=== PATIENT | male | born 1965 | race Caucasian/White ===

== ENCOUNTER 2016-07-18 17:23 | Inpatient (IN) | payer OTHER ==
--- NOTE | ~2016-07-18 | OP ---
Record Of Operation [facility] [address] [place]. 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 POSTOPERATIVE DIAGNOSES: 1. 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 2. Hematoma formation. PROCEDURES: Laminectomy, navigation assisted, T10-L2. SURGEON: Rafael Burrell D.O. DOPER: Rafal Bird. ANESTHETIC: General. BLOOD LOSS: 300 mL. INDICATIONS: Indications for surgery are noted in the consult note. Also, please note that I have gone over with the patient and his sister and family, the risk including but not limited to, infection, he could have a dural tear with meningitis, arachnoiditis, or need for surgical drainage or repair. He could have secondary to meningitis or from perioperative medical complications such as UTI, PE, pneumonia, SC, CVA, etc. His family has been explicitly warned that he may not recover any motor function and he may be a complete paraplegia from a motor standpoint. Consent form has been signed. DESCRIPTION OF PROCEDURE: The patient was brought from the ICU directly to the operative suite, room 31. General anesthetic including endotracheal intubation was administered. He was then carefully log rolled into a prone position on to the bed and placed on bolsters. All bony prominences were carefully padded. Thoracolumbar spine was scrubbed with Hibiclens solution. DuraPrep was painted. Sterile drapes were applied. Intraoperative CT scan with O-arm was obtained. CT information was used to register the navigational system. We used navigation because the needle had been placed with the needle at the disk space of L3-4. We could use that as a reference point and count up to the top of T11 to the bottom of T10. A midline incision was carried out, the fascia divided in midline, and the paraspinous muscles retracted laterally. I then started distally and carried out a laminectomy starting initially at the interval between the spinous process of L1 and L2. I removed the ligamentum flavum and debrided the lamina with a bur followed by a 2 and 3 mm Kerrison rongeurs. I then removed the ligamentum flavum and was sure that this was a hematoma and was not abscess. Cultures were taken just to cover all aspects of possibilities. I could see the L1-2. There is still hematoma distally, thus I extended distally, carried out a complete laminectomy with curettes, rongeurs, and drills all the way to the bottom of L2 and at this point, I had reached the distal extension of the hematoma. I evacuated the hematoma using a combination of a micro nerve hook, micro pituitary, and the Record Of Operation [facility] [address] [facility] [place]. [address] NAME: SARBJIT MOURA : 65 STATUS : ADM IN [facility]#: [id number] AGE: 50 ADM/REG DATE : 07/18/16 MR#: [id number] REPORT SERV DATE: 07/19/16 DICTATED BY: RAFAEL BURRELL DATE: 07/19/16 REPORT STATUS : Draft TRANSCRIBED BY: NATE DATE: 07/19/16 irrigation. The hematoma was solidly formed. As I moved from distal to proximal and carried out laminectomy, I found the hematoma to be larger and larger and particularly around the at T12 and the bottom of T11 area and there was severe cord compression with massive amounts of hematoma and the hematoma was worse on the right than the left side, but it was an extensive circumferential hematoma. We kept dissecting until we reached the top portion of the hematoma which was at the bottom of the lamina of T10. After the complete laminectomy and evacuation of the hematoma, the wounds were irrigated. The Hemovac drain was placed through the drains lying just over the dura to try to keep as much pressure off the thecal sac as possible. The vancomycin powder was placed in the wound and the myofascial layer was closed with an interrupted #1 Vicryl suture. The subcutaneous tissue was closed with 2-0 Vicryl sutures, 2-0 vertical mattress nylon suture used for skin closure. Sterile dressings were applied. The patient returned to supine position and Dr. Juancarlos Eugene then came to the operative suite and continued further care, dressing the left groin abscess or infection. MOSHE/MODL Rafael Burrell D.O. / [id number] CC: Matthew Choi MD
--- NOTE | ~2016-07-18 | IDS ---
Interim Discharge Summary [facility] [address] [place]. [address] NAME: SARBJIT MOURA : 65 STATUS : ADM IN PAT#: [id number] AGE: 50 ADM/REG DATE : 07/18/16 MR#: [id number] REPORT SERV DATE: 07/27/16 DICTATED BY: ELGIN CABA DATE: 07/26/16 REPORT STATUS : Draft TRANSCRIBED BY: MODL DATE: 07/26/16 ADMISSION DATE: 07/18/2016 DISCHARGE DATE: CONSULTANTS: Dr. Rambo Rogers Cardiology; Dr. Pepito Londono Neurology; Dr. Ilana Eugene, Urology; Dr. Rafael Ferrell Ortho Spine; Dr. Matthew Choi Critical Care; Dr. Massimo Mcgoevrn and Thomas Khan, Infectious Disease. PROBLEM LIST: 1. Delirium tremens in an alcoholic. 2. Paraplegia due to epidural hematoma T10 through L2. 3. Left groin abscess status post incision and drainage on 07/19/2016. 4. Small troponin leak type 2. 5. Hyponatremia. HISTORY: This patient presented to [facility], had multiple falls, having progressive difficulty with leg weakness. He was admitted to our team there, had a mild bump in his troponin, was seen by Dr. Rogers who felt that the troponin elevation was secondary to the stress, not a primary cardiac problem. He was seen by neurologist Dr. Pepito Londono who was concerned about the profound weakness in the patient's legs and so the patient underwent further imaging which included MRI of the lumbar, thoracic spine, and cervical spine. This revealed changes of T11 through L2 consistent with an epidural hematoma. The patient because of this was transferred here for Dr. Ferrell to see him. The patient was taken to the operating room by Dr. Ferrell on 07/19/2016 where he did laminectomy and evacuation of the hematoma. The patient also had a left lower inguinal abscess that was incised and drained by Dr. Eugene on the same date. The patient was in the ICU transiently because of DTs. He was transferred out to the medical floor. As far as his DTs, he is improving dramatically on thiamine and scheduled doses of Librium and p.r.n. doses of Ativan. He is very cooperative. As far as the inguinal abscess, Dr. Eugene is very pleased with the progress, thinks it just needs to be packed. It really has not grown anything significant out of it. The cultures from the epidural hematoma no growth, pathology just hematoma so he is off antibiotics. He has been paraplegic but today has some movement in his legs left better than right. Hopefully that will continue to improve. He still has a Bragg catheter. He has high risk for urinary retention so if it is taken out he will need to be closely monitored and may need straight catheterization. RSG/MODL Interim Discharge Summary [place] [id number] [place] [address] NAME: SARBJIT MOURA : 65 STATUS : ADM IN [facility]#: [id number] AGE: 50 ADM/REG DATE : 07/18/16 MR#: [id number] REPORT SERV DATE: 07/27/16 DICTATED BY: ELGIN CABA DATE: 07/26/16 REPORT STATUS : Draft TRANSCRIBED BY: NATE DATE: 07/26/16 Elgin Caba M.D. / [id number] CC: Matthew Choi
--- NOTE | ~2016-07-18 | IDS ---
Interim Discharge Summary [facility] [address] [place] [address] NAME: SARBJIT MOURA : 65 STATUS : ADM IN PAT#: [id number] AGE: 50 ADM/REG DATE : 07/18/16 MR#: [id number] REPORT SERV DATE: 07/27/16 DICTATED BY: ELGIN CABA DATE: 07/26/16 REPORT STATUS : Draft TRANSCRIBED BY: MODL DATE: 07/26/16 ADMISSION DATE: 07/18/2016 DISCHARGE DATE: ADDENDUM: The patient also had some rhabdomyolysis consistent with his falls and laying on the ground at home. His CPK at its highest was 1098, it has steadily come down. The patient's renal function is doing very well. RSG/NATE Elgin Caba M.D. / [id number] CC: Matthew Choi MD
--- NOTE | ~2016-07-18 | IDS ---
Interim Discharge Summary [facility] [address] [place]. [address] NAME: SARBJIT MOURA : 65 STATUS : ADM IN PAT#: [id number] AGE: 50 ADM/REG DATE : 07/18/16 MR#: [id number] REPORT SERV DATE: 07/22/16 DICTATED BY: HIMANSHU BOO DATE: 07/22/16 REPORT STATUS : Draft TRANSCRIBED BY: MODSherif DATE: 07/22/16 ADMISSION DATE: 07/18/2016 DISCHARGE DATE: DATE OF INITIAL HOSPITAL ADMISSION: To [facility] 07/14/2016. DATE OF TRANSFER: To [facility] 07/18/2016. DATE OF INTERIM SUMMARY: 07/22/2016. INTERIM DIAGNOSES: 1. Acute alcohol withdrawal. 2. Spinal hematoma. 3. Scrotal abscess. 4. Type 2 demand ischemia, myocardial infarction. ICU COURSE: Please see dictated H and P as well as interim summaries and consult notes for full patient presentation and hospital course. BRIEF SUMMARY: The patient is a 50-year-old gentleman with a past medical history of alcohol abuse. He was initially admitted to [facility] back on 07/14 with acute alcohol withdrawal and delirium tremens. During his hospital stay over [facility], he developed a demand ischemia, [id number] myocardial infarction and was placed on a heparin drip. Subsequent to that, he then developed worsening lower extremity weakness and was found to have an epidural hematoma, for which he was transferred here for surgery. He underwent evacuation of the hematoma on 07/19 and tolerated it well. He was extubated immediately and had no hemodynamic instability following the surgery. He also had an I and D of a scrotal abscess on that same day and has remained on vancomycin now day #5 for that as well. His alcohol withdrawal has remained very well controlled. He is on scheduled Librium, which I have been decreasing every few days. He is also getting Ativan p.r.n., but really is not requiring any doses. He remains calm and oriented. The patient is stable to go out to the floor. The hospitalist will assume his care once he goes out. Please call if you have any questions. PRATIMA/NATE Himanshu Boo MD / [id number] CC: Himanshu Boo MD
--- NOTE | ~2016-07-18 | CN ---
Consultation Report [facility] [address] [place]. [address] NAME: SARBJIT MOURA : 65 STATUS : ADM IN PAT#: [id number] AGE: 50 ADM/REG DATE : 07/18/16 MR#: [id number] REPORT SERV DATE: 07/19/16 DICTATED BY: RAFAEL BURRELL DATE: 07/18/16 REPORT STATUS : Draft TRANSCRIBED BY: MODL DATE: 07/18/16 CONSULTATION DATE OF CONSULTATION: 07/18/2016 REFERRING: Dr. Curry. CHIEF COMPLAINT: Ability to move legs. HISTORY OF PRESENT ILLNESS: A 50-year-old male, who has had a history of acute alcohol withdrawal syndrome. The patient was first made known to me approximately 4 p.m. today when I received a call from the anesthesiologist indicating they were considering doing surgery for a groin abscess by the urologist today, but when the MRI was reviewed, they found an epidural mass with the cord and cauda equina compression, and the urologist did not want to proceed. The [facility] and care since we were unable to perform any spine surgery at [facility]. To try to complete the history given by the family, which includes a niece and cousin, he is typically a 50-year-old male, who lives alone. He works at [employer]. He actually rides his bicycle 10 [address] to go to work. One week before, he was taken to the hospital this past Tuesday evening, which would have been 07/13/2016. He had gone to the ER at [facility] with complaints of new onset of back pain. It was in the middle of his back. He was given an injection and told that he just had a pulled muscle. He told his family that on Tuesday morning on 07/13/2016, he was down in the floor cleaning the floor and he could not get himself up out of the floor. The family actually found him in the floor on Tuesday evening. At that time, he could not move his left leg at all. He could move his right leg some. He has never been able to move his left leg since the family found him on the floor on Tuesday evening on 07/13/2016. The patient went through treatment with DTs at [facility] and that history is outlined in the chart. As a part of his treatment there, his troponin levels were felt to be elevated and he was given heparin. The family indicates that two days ago in the morning, sounds like 07/15/2016, at least some 48 to 60 hours ago, he was not able to move anything, neither leg was moving. The patient was seen by Neurology. An MRI has been ordered. The MRI has been performed, and the MRI does show a large epidural mass posteriorly from the top of the body of T11 to the bottom of the body of L2. The patient is now in MICU bed 10 at [facility]. The past medical history, surgical history, medications, allergies, social history, family history is reviewed from the H and P, and the consults are in the chart. PHYSICAL EXAMINATION: GENERAL: He is in the bed. He is alert and cooperative. He follows orders correctly. He is well oriented. The family does indicate that his orientation seems to come and go, but at this time, he appears to be completely oriented and following all commands. Consultation Report [facility] [address] [place]. [address] NAME: SARBJIT MOURA : 65 STATUS : ADM IN [facility]#: [id number] AGE: 50 ADM/REG DATE : 07/18/16 MR#: [id number] REPORT SERV DATE: 07/19/16 DICTATED BY: RAFAEL BURRELL DATE: 07/18/16 REPORT STATUS : Draft TRANSCRIBED BY: NATE DATE: 07/18/16 SPINE: Reveals no gross deformities. He has normal sensation both in the trunk as well as in the lower extremities, but he has flaccid paralysis below the waist. His iliopsoas, his adductor, abductors, quadriceps, hamstrings, tibialis anterior, gastrocsoleus are all 0/5. There is no movement of any kind to any kind of stimuli. His reflexes are actually absent. Cannot elicit hyperreflexia. There is no ankle clonus. His toes do not respond to a plantar Babinski's response. I did not do a rectal exam. MRI has been reviewed, which shows the mass as outlined above. ASSESSMENT: 1. Motor complete paraplegia T11 level. Sensory intact. 2. Large epidural hematoma assumed to be hematoma by the MRI findings, T11-L2. 3. Acute alcoholic withdrawal syndrome with no current delirium tremens occurring. RECOMMENDATIONS: Since the patient has been totally paralyzed motor jerome from T11 distally and this has been present for more than 48 hours, I do not believe doing surgery tonight versus tomorrow morning will change his outcome. I will start him on some IV steroid. He will be taken to surgery at 6 a.m. tomorrow morning, which is approximately only seven hours sooner than we could have done even we try to do it tonight and we will do a laminectomy and evacuation of hematoma. I have discussed with the family and the patient that he may get back partial strength. It is unlikely the patient will have complete paralysis of the motor function and have completely normal return. His sensory does remain intact. He is currently a Lisette B patient and at best, I would expect him to return to a Lisette D, which is useful motor and sensory intact. I have not assigned an DANE score because it is unclear as to his bowel and bladder function. Again, the family understands the risk to include infection, no guarantees this surgery will help at all, but is only chance of regaining some useful motor function. SH/MODL Rafael Burrell D.O. / [id number] CC: Matthew Choi MD
--- NOTE | ~2016-07-18 | OP ---
Record Of Operation [facility] [address] [place]. [address] NAME: SARBJIT BROWN : 65 STATUS : ADM IN PAT#: [id number] AGE: 50 ADM/REG DATE : 07/18/16 MR#: [id number] REPORT SERV DATE: 07/19/16 DICTATED BY: Ilana ANDUJAR DATE: 07/19/16 REPORT STATUS : Draft TRANSCRIBED BY: MODL DATE: 07/19/16 DATE OF PROCEDURE: PREOPERATIVE DIAGNOSIS: Left lower inguinal abscess. POSTOPERATIVE DIAGNOSIS: Left lower inguinal abscess. PROCEDURE: Flexible cystoscopy, Bragg catheter placement, incision and drainage of left lower inguinal abscess. BRIEF HISTORY: Mr. Brown is a 50-year-old white male, seen by me for the first time yesterday at [facility]. He had a question of a scrotal abscess, although it appeared to be in his left lower inguinal area. He was not toxic in appearance. He said that it had been present for many months, but we planned to drain it. He had also had some left lower extremity movement issues and MRI was obtained and showed a large epidural hematoma. We put his I and D on hold. He was transferred downtown for surgical therapy. Dr. Ferrell has removed the hematoma and he remains in the operating room for the above procedure. I discussed this with him at length yesterday. DESCRIPTION OF PROCEDURE: Dr. Ferrell finished closing. The patient was placed supine in a frog-web type position. His catheter was removed. Examination of the scrotum was normal. His penis was circumcised and normal. He had a minimum amount of drainage from his left lower inguinal area. It did not appear to connect with either the rectum or the urethra. I performed a flexible cystoscopy. It showed a normal anterior urethra. The posterior urethra was minimally obstructing the bladder, which showed signs of recent catheterization. I see no evidence of a fistula. I then inserted a 20-Albanian 2-way Bragg catheter with 10 mL of sterile water in the balloon to ease urethral palpation. I then prepped and draped this area and opened the wound about 2 cm. There was not a lot of pus, but I obtained cultures. I could not demonstrate internally connection with proximal viscous bladder urethra or rectum. I took 0.5 inch iodoform gauze and packed the wound and then asked that 4x4s and a scrotal support be applied. We will manage this wound as appropriate with the Wound Center etc. MAYELA/NATE Ilana Andujar M.D. / [id number] CC: Matthew Choi MD
--- NOTE | ~2016-07-18 | DS ---
Discharge Summary [facility] [address] [place]. [address] NAME: SARBJIT MOURA : 65 STATUS : DIS IN PAT#: [id number] AGE: 50 ADM/REG DATE : 07/18/16 MR#: [id number] REPORT SERV DATE: 07/31/16 DICTATED BY: JUANITA POPE DATE: 07/30/16 REPORT STATUS : Draft TRANSCRIBED BY: MODL DATE: 07/30/16 ADMISSION DATE: 07/18/2016 DISCHARGE DATE: 07/30/2016 ADDENDUM: The patient was not discharged on 07/29/2016, but he is being discharged on 07/30/2016 as the patient did not have a ride last night. This morning he does have a ride, and he is being discharged home around 9 a.m. this morning. I do not have any other additional information to add to my discharge summary dictated on 07/29/2016, all of that remains exactly the same. I did examine the patient again this morning of 07/30/2016, and he continues to be medically stable for discharge. He continues to have a Bragg catheter in and continues to need wound care for the left scrotal wound. He will get [facility] who had been kind enough to provide free visits to this patient for Bragg catheter care and also for wound care. They will try to give him some basic PT/OT at home too, so we are chariting a wheelchair to this patient also. The patient hence is getting a monae mechanical wheelchair and also [facility]ae home health by [facility]. I do not have any further medical instructions on this patient upon discharge. A total of 40 minutes has been spent on coordinating discharge care of this patient. Please see my discharge summary on 07/29/2016. DELMA/NATE Juanita Pope M.D. / [id number] CC: Juanita Pope M.D.
--- NOTE | ~2016-07-18 | DS ---
Discharge Summary [facility] [address] [place]. [address] NAME: SARBJIT MOURA : 65 STATUS : ADM IN PAT#: [id number] AGE: 50 ADM/REG DATE : 07/18/16 MR#: [id number] REPORT SERV DATE: 07/30/16 DICTATED BY: JUNAITA POPE DATE: 07/29/16 REPORT STATUS : Draft TRANSCRIBED BY: MODSherif DATE: 07/29/16 ADMISSION DATE: 07/18/2016 DISCHARGE DATE: 07/29/2016 Date of admission to [facility] is 07/18/2016. Date of discharge from [facility] is 07/29/2016. CONDITION ON DISCHARGE: Stable. DISPOSITION: Discharged to home. The patient's discharge will be contingent upon demonstrating safety to Physical Therapy and Occupational Therapy that the patient can transfer himself from bed to the wheelchair that we have charitied him. The patient has received a monae wheelchair from [facility] and will also [facility] as described below. The patient insists that he goes home and be discharged and he states that his sister is there at home and also a brother and nephew. So, he has a place to go, but he states that he can do most things independently as long as he can get himself transferred from bed to a wheelchair and he will demonstrate safety of this to PT and OT before we deem it is safe for him to be discharged. Other diagnoses on discharge: 1. This patient has spent a complicated long course in the hospital after having been transferred from [facility] to [place]. The patient essentially is a tobacco user and an alcoholic who was admitted to [facility] in active alcohol withdrawal and DTs. During that course, he suffered rhabdomyolysis from alcohol use and also multiple falls and probably one of those falls itself resulted in him having a large epidural hematoma at the T11 level that left him paraplegic. The paraplegia was first noticed at [facility] and he was transferred here to the intensive care unit, so he could get the hematoma evacuated by Dr. Ferrell. 2. Delirium tremens and alcohol withdrawal, this has resolved. 3. Paraplegia is persisting and the patient has ended up with almost no use of both his legs and having had to transfer himself to a wheelchair. BRIEF HOSPITAL COURSE: This patient is a 50-year-old patient with a history of tobacco use and alcoholism as mentioned above was admitted with DTs and rhabdomyolysis. An epidural hematoma was found to be responsible for his paraplegia and he was transferred to [facility], so Dr. Ferrell could evacuate the hematoma. The hematoma itself was probably a result of multiple falls that he has had from the alcoholism itself. This patient has very poor self-care and has a long history of tobacco and alcohol use and not taking care of self. Consultants obtained during this hospitalization include: 1. Dr. Ferrell for evacuating the epidural hematoma that still left him with paraplegia. Discharge Summary [place] [address] [facility] [place]. [address] NAME: SARBJIT MOURA : 65 STATUS : ADM IN [facility]#: [id number] AGE: 50 ADM/REG DATE : 07/18/16 MR#: [id number] REPORT SERV DATE: 07/30/16 DICTATED BY: JUANITA POPE DATE: 07/29/16 REPORT STATUS : Draft TRANSCRIBED BY: NATE DATE: 07/29/[address] Rambo Rogers of Cardiology for cardiac arrhythmia. 3. Dr. Juancarlos Eugene for evacuation of his left inguinal abscess that was found. 4. Dr. Pepito Londono, neurologist. 5. Dr. Matthew Choi, critical care. 6. Also Infectious Disease has been consulted to decide on antibiotics for his left scrotal abscess. At this time, the left scrotal abscess/left inguinal abscess has been evacuated and has resolved with antibiotics chosen by ID specialist. Hence, the only issue that the patient is left with now is his paraplegia of both the legs from the epidural hematoma itself even after evacuation of the hematoma. At this time, the patient insists that he goes home. He has been insisting that he be discharged out of the hospital for the last two days. He states that he can transfer himself out of bed to a wheelchair. A wheelchair has been charitied to him and he will demonstrate safety of transfer himself to the wheelchair before discharge. He states that he will give up alcohol, but he continues to chew tobacco even while in the hospital including spitting it into his empty Coke cans that he has next to him. I have advised him with lifestyle change and stop this tobacco use and definitely not go back to alcohol or drugs or to his wrong "friends." However, he insists and we have done our best here to queen's counsel this gentleman. So, he is being discharged home on the following three medications, which will also be charitied to him; one is pravastatin 40 mg once a day, aspirin 81 mg once a day, and chlordiazepoxide or Librium. Since he has been on Librium here, I am only going to give him Librium so that he can taper himself off and stop and definitely he will not be on chronic Librium therapy or any chronic benzodiazepine therapy. He will be given only #10 pills of 25 mg of Librium and exactly how to taper it and stop it have been written on the prescription and given to the patient. I have the following labs on him upon discharge and these include the following: The most recent CBC that was done on 07/28/2016 shows a WBC count of 12.9, hemoglobin 11.6, hematocrit of 33.6, and platelet count of 328. Electrolyte profile shows sodium 135, potassium 4, BUN 11, and creatinine 0.6. The genitourinary culture had shown sparse growth of Haemophilus parainfluenzae. No growth of gonococcus, no growth of Streptococcus. Anyway, the patient has finished his antibiotic therapy with vancomycin for the stipulated period as advised by ID. Now, he is not on any more antibiotics. Otherwise, he looks extremely healthy and examination is normal right now and his mental status is back to normal right now, but he has ended up with this paraplegia. So, upon his insistence, if he demonstrates safety, we will discharge him out of the hospital with advice to change his lifestyle and I have spent about 40 to 45 minutes in coordinating discharge care of this patient including [id number] encounter and summarizing this discharge. Please see interim discharge summaries from other physicians, Dr. Choi, Dr. Caba, and also consultation notes by Infectious Disease, Dr. Khan and Dr. Mcgovern and also notes by Dr. Eugene, urologist, and also Dr. Ferrell regarding all the operative procedures that this gentleman has had while here. Discharge Summary [address] [place]. [address] NAME: SARBJIT MOURA : 65 STATUS : ADM IN PAT#: [id number] AGE: 50 ADM/REG DATE : 07/18/16 MR#: [id number] REPORT SERV DATE: 07/30/16 DICTATED BY: JUANITA POPE DATE: 07/29/16 REPORT STATUS : Draft TRANSCRIBED BY: NATE DATE: 07/29/16 DELMA/NATE Juanita Pope M.D. / [id number] CC: Juanita Pope M.D.
[~2016-07-18 17:23] MED LIST: *DENIES; ASPERCREME TOP
[2016-07-18 23:00] LABS: INTERNATIONAL NORMAL RATI 1.1 UNITS (-); PARTIAL THROMBO TIME 31.4 SEC (22.5-37.2); PROTIME (NOT ORD) 13.9 SEC (12.0-14.5)
[2016-07-18 23:10] LABS: ALBUMIN 2.5 G/DL (3.5-5.0); INDIRECT BILIRUBIN(NOT ORDER) 0.8 MG/DL (0.1-0.9); TOTAL PROTEIN 6.2 G/DL (6.0-8.5)
[2016-07-18 23:11] LABS: DIRECT BILIRUBIN 0.2 MG/DL (0.0-0.4)
[2016-07-19 04:24] LABS: BASOPHILS 0.2 %; BASOPHILS ABSOLUTE 0.01 10/3/uL (0.0-0.16); EOSINOPHILS 0.2 %; EOSINOPHILS ABSOLUTE 0.01 10/3/uL (0.0-0.53); HEMATOCRIT 31.9 % (40.0-51.0); HEMOGLOBIN 10.9 g/dL (13.6-17.8); IMMATURE GRANULOCYTES 0.6 %; IMMATURE GRANULOCYTES ABSOLUTE 0.03 10/3/uL (0.0-0.11); LYMPHOCYTES ABSOLUTE 0.57 10/3/uL (0.67-4.30); MEAN CORPUSCULAR HEMOGLOB 33.5 pg (26.0-34.0); MEAN CORPUSCULAR VOLUME 98.2 fL (80-100); MEAN PLATELET VOLUME 8.7 fL (9.2-13.0); MONOCYTES 9.9 %; MONOCYTES ABSOLUTE 0.51 10/3/uL (0.21-1.20); NEUTROPHILS 78.1 %; NEUTROPHILS ABSOLUTE 4.04 10/3/uL (2.02-8.40); PLATELET COUNT 244 10/3/uL (150-400); RBC DISTRIBUTION WIDTH 13.1 % (12.0-16.0); RED CELL COUNT 3.25 10/6/uL (4.7-6.1); WHITE BLOOD CELLS 5.2 10/3/uL (4.5-10.5)
[2016-07-19 04:27] LABS: MANUAL DIFF NO %; MEAN CORPUS HGB CONC 34.2 g/dL (32.0-36.0)
[2016-07-19 04:35] LABS: INTERNATIONAL NORMAL RATI 1.1 UNITS (-); PROTIME (NOT ORD) 13.8 SEC (12.0-14.5)
[2016-07-19 04:45] LABS: ALBUMIN 2.6 G/DL (3.5-5.0); CALCIUM, SERUM 8.7 MG/DL (8.5-10.4); CHLORIDE, SERUM 103 MMOL/L (96-112); CO2 (CARBON DIOXIDE) 25 MMOL/L (24-34); GFR AFRICAN AMERICAN 146 ML/MIN (>=60); GFR NON AFRICAN AMERICAN 126 ML/MIN (>=60); POTASSIUM, SERUM 4.4 MMOL/L (3.5-5.3); SODIUM, SERUM 138 MMOL/L (135-148)
[2016-07-19 04:49] LABS: BUN (BLOOD UREA NITROGEN) 9 MG/DL (6-23); GLUCOSE, SERUM 132 MG/DL (60-99); PHOSPHORUS, SERUM 3.9 MG/DL (2.5-4.5)
[2016-07-19 10:22] LABS: BASOPHILS 0 %; EOSINOPHILS 0 %; HEMATOCRIT 29.1 % (40.0-51.0); IMMATURE GRANULOCYTES 0.6 %; IMMATURE GRANULOCYTES ABSOLUTE 0.03 10/3/uL (0.0-0.11); LYMPHOCYTES 6.6 %; LYMPHOCYTES ABSOLUTE 0.32 10/3/uL (0.67-4.30); MANUAL DIFF NO %; MEAN CORPUS HGB CONC 34.4 g/dL (32.0-36.0); MEAN CORPUSCULAR HEMOGLOB 33.7 pg (26.0-34.0); MEAN PLATELET VOLUME 8.8 fL (9.2-13.0); MONOCYTES 14.1 %; MONOCYTES ABSOLUTE 0.68 10/3/uL (0.21-1.20); NEUTROPHILS 78.7 %; NEUTROPHILS ABSOLUTE 3.79 10/3/uL (2.02-8.40); PLATELET COUNT 260 10/3/uL (150-400); RBC DISTRIBUTION WIDTH 13.1 % (12.0-16.0); RED CELL COUNT 2.97 10/6/uL (4.7-6.1); WHITE BLOOD CELLS 4.8 10/3/uL (4.5-10.5)
[2016-07-19 10:39] LABS: BUN (BLOOD UREA NITROGEN) 11 MG/DL (6-23); CALCIUM, SERUM 8.3 MG/DL (8.5-10.4); CHLORIDE, SERUM 105 MMOL/L (96-112); CO2 (CARBON DIOXIDE) 26 MMOL/L (24-34); CREATININE 0.54 MG/DL (0.70-1.30); GFR AFRICAN AMERICAN 142 ML/MIN (>=60); GFR NON AFRICAN AMERICAN 122 ML/MIN (>=60); POTASSIUM, SERUM 4.6 MMOL/L (3.5-5.3); SODIUM, SERUM 141 MMOL/L (135-148)
[2016-07-19 10:40] LABS: GLUCOSE, SERUM 162 MG/DL (60-99)
[2016-07-20 04:36] LABS: HEMATOCRIT 29.5 % (40.0-51.0); HEMOGLOBIN 10.1 g/dL (13.6-17.8); MEAN CORPUS HGB CONC 34.2 g/dL (32.0-36.0); MEAN CORPUSCULAR HEMOGLOB 33.4 pg (26.0-34.0); MEAN CORPUSCULAR VOLUME 97.7 fL (80-100); MEAN PLATELET VOLUME 8.9 fL (9.2-13.0); PLATELET COUNT 317 10/3/uL (150-400); RBC DISTRIBUTION WIDTH 13.1 % (12.0-16.0); RED CELL COUNT 3.02 10/6/uL (4.7-6.1)
[2016-07-20 04:42] LABS: MANUAL DIFF YES %; WHITE BLOOD CELLS 9.8 10/3/uL (4.5-10.5)
[2016-07-20 04:51] LABS: BUN (BLOOD UREA NITROGEN) 7 MG/DL (6-23); CALCIUM, SERUM 7.8 MG/DL (8.5-10.4); CHLORIDE, SERUM 103 MMOL/L (96-112); CO2 (CARBON DIOXIDE) 26 MMOL/L (24-34); CREATININE 0.46 MG/DL (0.70-1.30); GFR AFRICAN AMERICAN 152 ML/MIN (>=60); GFR NON AFRICAN AMERICAN 131 ML/MIN (>=60); GLUCOSE, SERUM 147 MG/DL (60-99); PHOSPHORUS, SERUM 3.3 MG/DL (2.5-4.5); SODIUM, SERUM 138 MMOL/L (135-148); VANCOMYCIN TROUGH 7.8 MCG/ML (10.0-20.0)
[2016-07-20 05:31] LABS: BAND NEUTROPHILS 3 %; LYMPHOCYTES 15 %; LYMPHOCYTES ABSOLUTE (CALC) 1.47 10/3/uL (0.67-4.30); METAMYELOCYTES 1 %; MONOCYTES 6 %; MONOCYTES ABSOLUTE (CALC) 0.59 10/3/uL (0.21-1.20); NEUTROPHILS ABSOLUTE (CALC) 7.64 10/3/uL (2.02-8.40); PLATELET ESTIMATE ADQ (ADEQUATE); RBC MORPHOLOGY NORM (NORMAL); SEGMENTED NEUTROPHIL (0) 75 %; TOTAL NUCLEATED CELLS 100
[2016-07-21 04:12] LABS: BASOPHILS 0.3 %; BASOPHILS ABSOLUTE 0.03 10/3/uL (0.0-0.16); EOSINOPHILS 0.8 %; EOSINOPHILS ABSOLUTE 0.08 10/3/uL (0.0-0.53); HEMATOCRIT 29.6 % (40.0-51.0); IMMATURE GRANULOCYTES 0.5 %; IMMATURE GRANULOCYTES ABSOLUTE 0.05 10/3/uL (0.0-0.11); LYMPHOCYTES 17.1 %; LYMPHOCYTES ABSOLUTE 1.61 10/3/uL (0.67-4.30); MEAN CORPUS HGB CONC 33.8 g/dL (32.0-36.0); MEAN CORPUSCULAR HEMOGLOB 33.7 pg (26.0-34.0); MEAN CORPUSCULAR VOLUME 99.7 fL (80-100); MONOCYTES 16.1 %; MONOCYTES ABSOLUTE 1.52 10/3/uL (0.21-1.20); NEUTROPHILS 65.2 %; NEUTROPHILS ABSOLUTE 6.14 10/3/uL (2.02-8.40); PLATELET COUNT 356 10/3/uL (150-400); RBC DISTRIBUTION WIDTH 13.1 % (12.0-16.0); RED CELL COUNT 2.97 10/6/uL (4.7-6.1); WHITE BLOOD CELLS 9.4 10/3/uL (4.5-10.5)
[2016-07-21 04:13] LABS: MANUAL DIFF NO %
[2016-07-21 04:36] LABS: CALCIUM, SERUM 7.9 MG/DL (8.5-10.4); CHLORIDE, SERUM 100 MMOL/L (96-112); CO2 (CARBON DIOXIDE) 29 MMOL/L (24-34); CREATININE 0.53 MG/DL (0.70-1.30); GFR AFRICAN AMERICAN 143 ML/MIN (>=60); GFR NON AFRICAN AMERICAN 123 ML/MIN (>=60); PHOSPHORUS, SERUM 2.9 MG/DL (2.5-4.5); POTASSIUM, SERUM 3.5 MMOL/L (3.5-5.3); SODIUM, SERUM 135 MMOL/L (135-148)
[2016-07-21 04:49] LABS: BUN (BLOOD UREA NITROGEN) 14 MG/DL (6-23); GLUCOSE, SERUM 110 MG/DL (60-99)
[2016-07-22 04:54] LABS: BASOPHILS 0.2 %; BASOPHILS ABSOLUTE 0.02 10/3/uL (0.0-0.16); EOSINOPHILS 1.1 %; EOSINOPHILS ABSOLUTE 0.11 10/3/uL (0.0-0.53); HEMATOCRIT 30.9 % (40.0-51.0); HEMOGLOBIN 10.3 g/dL (13.6-17.8); IMMATURE GRANULOCYTES 0.8 %; IMMATURE GRANULOCYTES ABSOLUTE 0.08 10/3/uL (0.0-0.11); LYMPHOCYTES 17.9 %; LYMPHOCYTES ABSOLUTE 1.86 10/3/uL (0.67-4.30); MEAN CORPUS HGB CONC 33.3 g/dL (32.0-36.0); MEAN CORPUSCULAR HEMOGLOB 33.3 pg (26.0-34.0); MEAN PLATELET VOLUME 9.2 fL (9.2-13.0); MONOCYTES 10.9 %; MONOCYTES ABSOLUTE 1.13 10/3/uL (0.21-1.20); NEUTROPHILS 69.1 %; PLATELET COUNT 357 10/3/uL (150-400); RBC DISTRIBUTION WIDTH 13.3 % (12.0-16.0); RED CELL COUNT 3.09 10/6/uL (4.7-6.1); WHITE BLOOD CELLS 10.4 10/3/uL (4.5-10.5)
[2016-07-22 04:55] LABS: MANUAL DIFF NO %
[2016-07-22 05:15] LABS: BUN (BLOOD UREA NITROGEN) 11 MG/DL (6-23); CALCIUM, SERUM 8.4 MG/DL (8.5-10.4); CHLORIDE, SERUM 98 MMOL/L (96-112); CO2 (CARBON DIOXIDE) 28 MMOL/L (24-34); CREATININE 0.53 MG/DL (0.70-1.30); GFR AFRICAN AMERICAN 143 ML/MIN (>=60); GFR NON AFRICAN AMERICAN 123 ML/MIN (>=60); GLUCOSE, SERUM 102 MG/DL (60-99); PHOSPHORUS, SERUM 3.4 MG/DL (2.5-4.5); POTASSIUM, SERUM 3.9 MMOL/L (3.5-5.3); SODIUM, SERUM 135 MMOL/L (135-148); VANCOMYCIN TROUGH 12.2 MCG/ML (10.0-20.0)
[2016-07-23 05:21] LABS: BASOPHILS 0.3 %; BASOPHILS ABSOLUTE 0.03 10/3/uL (0.0-0.16); EOSINOPHILS 0.6 %; EOSINOPHILS ABSOLUTE 0.07 10/3/uL (0.0-0.53); HEMATOCRIT 30.5 % (40.0-51.0); HEMOGLOBIN 10.4 g/dL (13.6-17.8); IMMATURE GRANULOCYTES 0.8 %; IMMATURE GRANULOCYTES ABSOLUTE 0.09 10/3/uL (0.0-0.11); LYMPHOCYTES 11.5 %; LYMPHOCYTES ABSOLUTE 1.37 10/3/uL (0.67-4.30); MEAN CORPUS HGB CONC 34.1 g/dL (32.0-36.0); MEAN CORPUSCULAR HEMOGLOB 33.2 pg (26.0-34.0); MEAN CORPUSCULAR VOLUME 97.4 fL (80-100); MEAN PLATELET VOLUME 8.6 fL (9.2-13.0); MONOCYTES ABSOLUTE 0.83 10/3/uL (0.21-1.20); NEUTROPHILS 79.8 %; PLATELET COUNT 348 10/3/uL (150-400); RBC DISTRIBUTION WIDTH 13.1 % (12.0-16.0); RED CELL COUNT 3.13 10/6/uL (4.7-6.1); WHITE BLOOD CELLS 11.9 10/3/uL (4.5-10.5)
[2016-07-23 05:23] LABS: MANUAL DIFF NO %
[2016-07-23 05:40] LABS: BUN (BLOOD UREA NITROGEN) 11 MG/DL (6-23); CALCIUM, SERUM 8.6 MG/DL (8.5-10.4); CHLORIDE, SERUM 98 MMOL/L (96-112); CO2 (CARBON DIOXIDE) 30 MMOL/L (24-34); CREATININE 0.57 MG/DL (0.70-1.30); GFR AFRICAN AMERICAN 139 ML/MIN (>=60); GFR NON AFRICAN AMERICAN 120 ML/MIN (>=60); GLUCOSE, SERUM 106 MG/DL (60-99); PHOSPHORUS, SERUM 3.6 MG/DL (2.5-4.5); POTASSIUM, SERUM 3.9 MMOL/L (3.5-5.3); SODIUM, SERUM 135 MMOL/L (135-148)
[2016-07-24 05:33] LABS: BASOPHILS 0.7 %; BASOPHILS ABSOLUTE 0.07 10/3/uL (0.0-0.16); EOSINOPHILS 0.8 %; EOSINOPHILS ABSOLUTE 0.09 10/3/uL (0.0-0.53); HEMATOCRIT 31.4 % (40.0-51.0); HEMOGLOBIN 10.8 g/dL (13.6-17.8); IMMATURE GRANULOCYTES 0.7 %; IMMATURE GRANULOCYTES ABSOLUTE 0.07 10/3/uL (0.0-0.11); LYMPHOCYTES 12.1 %; MEAN CORPUS HGB CONC 34.4 g/dL (32.0-36.0); MEAN CORPUSCULAR HEMOGLOB 33.3 pg (26.0-34.0); MEAN CORPUSCULAR VOLUME 96.9 fL (80-100); MEAN PLATELET VOLUME 8.9 fL (9.2-13.0); MONOCYTES 7.7 %; MONOCYTES ABSOLUTE 0.83 10/3/uL (0.21-1.20); NEUTROPHILS ABSOLUTE 8.35 10/3/uL (2.02-8.40); PLATELET COUNT 422 10/3/uL (150-400); RED CELL COUNT 3.24 10/6/uL (4.7-6.1); WHITE BLOOD CELLS 10.7 10/3/uL (4.5-10.5)
[2016-07-24 05:41] LABS: MANUAL DIFF NO %
[2016-07-24 05:48] LABS: CALCIUM, SERUM 8.6 MG/DL (8.5-10.4); CHLORIDE, SERUM 102 MMOL/L (96-112); CO2 (CARBON DIOXIDE) 27 MMOL/L (24-34); CREATININE 0.57 MG/DL (0.70-1.30); GFR AFRICAN AMERICAN 139 ML/MIN (>=60); GFR NON AFRICAN AMERICAN 120 ML/MIN (>=60); GLUCOSE, SERUM 116 MG/DL (60-99); POTASSIUM, SERUM 3.4 MMOL/L (3.5-5.3); SODIUM, SERUM 141 MMOL/L (135-148)
[2016-07-24 05:53] LABS: BUN (BLOOD UREA NITROGEN) 7 MG/DL (6-23)
[2016-07-25 07:07] LABS: BASOPHILS 1.4 %; BASOPHILS ABSOLUTE 0.15 10/3/uL (0.0-0.16); EOSINOPHILS 1.8 %; EOSINOPHILS ABSOLUTE 0.19 10/3/uL (0.0-0.53); HEMATOCRIT 33.9 % (40.0-51.0); HEMOGLOBIN 11.7 g/dL (13.6-17.8); IMMATURE GRANULOCYTES 0.6 %; IMMATURE GRANULOCYTES ABSOLUTE 0.07 10/3/uL (0.0-0.11); LYMPHOCYTES 12.7 %; LYMPHOCYTES ABSOLUTE 1.38 10/3/uL (0.67-4.30); MEAN CORPUS HGB CONC 34.5 g/dL (32.0-36.0); MEAN CORPUSCULAR VOLUME 95.5 fL (80-100); MEAN PLATELET VOLUME 8.6 fL (9.2-13.0); MONOCYTES 7.5 %; MONOCYTES ABSOLUTE 0.81 10/3/uL (0.21-1.20); NEUTROPHILS ABSOLUTE 8.24 10/3/uL (2.02-8.40); PLATELET COUNT 374 10/3/uL (150-400); RBC DISTRIBUTION WIDTH 13.2 % (12.0-16.0); RED CELL COUNT 3.55 10/6/uL (4.7-6.1); WHITE BLOOD CELLS 10.8 10/3/uL (4.5-10.5)
[2016-07-25 07:17] LABS: MANUAL DIFF NO %
[2016-07-25 07:25] LABS: BUN (BLOOD UREA NITROGEN) 10 MG/DL (6-23); CALCIUM, SERUM 8.9 MG/DL (8.5-10.4); CHLORIDE, SERUM 104 MMOL/L (96-112); CO2 (CARBON DIOXIDE) 23 MMOL/L (24-34); CREATININE 0.57 MG/DL (0.70-1.30); GFR AFRICAN AMERICAN 139 ML/MIN (>=60); GFR NON AFRICAN AMERICAN 120 ML/MIN (>=60); GLUCOSE, SERUM 98 MG/DL (60-99); POTASSIUM, SERUM 3.9 MMOL/L (3.5-5.3); SODIUM, SERUM 139 MMOL/L (135-148); VANCOMYCIN TROUGH 9.5 MCG/ML (10.0-20.0)
[2016-07-26 08:05] LABS: BASOPHILS 0.9 %; EOSINOPHILS 2.2 %; EOSINOPHILS ABSOLUTE 0.25 10/3/uL (0.0-0.53); HEMATOCRIT 34.6 % (40.0-51.0); HEMOGLOBIN 11.6 g/dL (13.6-17.8); IMMATURE GRANULOCYTES 0.5 %; IMMATURE GRANULOCYTES ABSOLUTE 0.06 10/3/uL (0.0-0.11); LYMPHOCYTES 15.7 %; LYMPHOCYTES ABSOLUTE 1.83 10/3/uL (0.67-4.30); MEAN CORPUS HGB CONC 33.5 g/dL (32.0-36.0); MEAN CORPUSCULAR HEMOGLOB 32.6 pg (26.0-34.0); MEAN CORPUSCULAR VOLUME 97.2 fL (80-100); MEAN PLATELET VOLUME 8.6 fL (9.2-13.0); MONOCYTES 7.2 %; MONOCYTES ABSOLUTE 0.84 10/3/uL (0.21-1.20); NEUTROPHILS 73.5 %; NEUTROPHILS ABSOLUTE 8.54 10/3/uL (2.02-8.40); PLATELET COUNT 407 10/3/uL (150-400); RED CELL COUNT 3.56 10/6/uL (4.7-6.1); WHITE BLOOD CELLS 11.6 10/3/uL (4.5-10.5)
[2016-07-26 08:31] LABS: BUN (BLOOD UREA NITROGEN) 8 MG/DL (6-23); CALCIUM, SERUM 8.8 MG/DL (8.5-10.4); CHLORIDE, SERUM 101 MMOL/L (96-112); CREATININE 0.58 MG/DL (0.70-1.30); GFR AFRICAN AMERICAN 138 ML/MIN (>=60); GFR NON AFRICAN AMERICAN 119 ML/MIN (>=60); GLUCOSE, SERUM 102 MG/DL (60-99); POTASSIUM, SERUM 3.9 MMOL/L (3.5-5.3); SODIUM, SERUM 139 MMOL/L (135-148)
[2016-07-26 08:32] LABS: CO2 (CARBON DIOXIDE) 28 MMOL/L (24-34)
[2016-07-28 06:38] LABS: BASOPHILS 0.7 %; BASOPHILS ABSOLUTE 0.09 10/3/uL (0.0-0.16); EOSINOPHILS 1.8 %; EOSINOPHILS ABSOLUTE 0.23 10/3/uL (0.0-0.53); HEMATOCRIT 33.6 % (40.0-51.0); HEMOGLOBIN 11.6 g/dL (13.6-17.8); IMMATURE GRANULOCYTES 0.6 %; IMMATURE GRANULOCYTES ABSOLUTE 0.08 10/3/uL (0.0-0.11); LYMPHOCYTES 13.2 %; LYMPHOCYTES ABSOLUTE 1.71 10/3/uL (0.67-4.30); MANUAL DIFF NO %; MEAN CORPUS HGB CONC 34.5 g/dL (32.0-36.0); MEAN CORPUSCULAR HEMOGLOB 32.8 pg (26.0-34.0); MEAN CORPUSCULAR VOLUME 94.9 fL (80-100); MONOCYTES 7.6 %; MONOCYTES ABSOLUTE 0.98 10/3/uL (0.21-1.20); NEUTROPHILS 76.1 %; NEUTROPHILS ABSOLUTE 9.84 10/3/uL (2.02-8.40); PLATELET COUNT 328 10/3/uL (150-400); RBC DISTRIBUTION WIDTH 13.3 % (12.0-16.0); RED CELL COUNT 3.54 10/6/uL (4.7-6.1); WHITE BLOOD CELLS 12.9 10/3/uL (4.5-10.5)
[2016-07-28 06:46] LABS: BUN (BLOOD UREA NITROGEN) 11 MG/DL (6-23); CALCIUM, SERUM 9.4 MG/DL (8.5-10.4); CHLORIDE, SERUM 98 MMOL/L (96-112); CO2 (CARBON DIOXIDE) 30 MMOL/L (24-34); GFR AFRICAN AMERICAN 136 ML/MIN (>=60); GFR NON AFRICAN AMERICAN 117 ML/MIN (>=60); GLUCOSE, SERUM 102 MG/DL (60-99); SODIUM, SERUM 135 MMOL/L (135-148)
[2016-07-29] MEDS ORDERED: LIBRIUM 25 MG C25 MG PO (13:48)
[2016-07-29] MEDS ORDERED: ASAB PO (13:50)
[2016-07-29] MEDS ORDERED: PRAVACHOL40 MG PO (13:52)
== END 2016-07-30 09:53 | disposition home health service (06) | DRG 28 ==
LOC: MIC 17:23 → 3SO 07-22 21:08 → 1SO 07-24 20:24
PROVIDERS: Anesthesiology; Hospitalist; Internal Medicine; Internal Medicine Critical Care Medicine; Orthopaedic Surgery Orthopaedic Surgery of the Spine; Radiology Radiation Oncology
PROC: 0PB40ZZ Excision of Thoracic Vertebra, Open Approach (ICD-10-PCS; 2016-07-19)
PROC: 0W9K0ZZ Drainage of Upper Back, Open Approach (ICD-10-PCS; 2016-07-19)
PROC: 0W9L0ZZ Drainage of Lower Back, Open Approach (ICD-10-PCS; 2016-07-19)
PROC: 8E0WXBG Computer Assisted Procedure of Trunk Region, With Computerized Tomography (ICD-10-PCS; 2016-07-19)
PROC: 0T9B80Z Drainage of Bladder with Drainage Device, Via Natural or Artificial Opening Endoscopic (ICD-10-PCS; 2016-07-19)
PROC: 00NX0ZZ Release Thoracic Spinal Cord, Open Approach (ICD-10-PCS; principal; 2016-07-19 05:45)
PROC: 0Y960ZZ Drainage of Left Inguinal Region, Open Approach (ICD-10-PCS; 2016-07-19 05:45)
PROC: 0QB00ZZ Excision of Lumbar Vertebra, Open Approach (ICD-10-PCS; 2016-07-19 05:45)
DX: S24.104A Unspecified injury at T11-T12 level of thoracic spinal cord, initial encounter (principal); S34.101A Unspecified injury to L1 level of lumbar spinal cord, initial encounter; F10.231 Alcohol dependence with withdrawal delirium; G82.21 Paraplegia, complete; I24.8 Other forms of acute ischemic heart disease; M62.82 Rhabdomyolysis; E87.1 Hypo-osmolality and hyponatremia; L02.214 Cutaneous abscess of groin; F17.220 Nicotine dependence, chewing tobacco, uncomplicated; W18.30XA Fall on same level, unspecified, initial encounter; R29.6 Repeated falls; Z28.20 Immunization not carried out because of patient decision for unspecified reason; Z79.82 Long term (current) use of aspirin; Z79.899 Other long term (current) drug therapy
CPT/HCPCS: 36415; 71010; 80048; 80069; 80076; 80202; 82962; 83735; 84100; 85025; 85610; 85730; 86850; 86900; 86901; 87015; 87070; 87075; 87102; 87116; 87186; 87205; 87641; 88304; 88311; 93005; 97110-GP; 97163-GP; 97167-GO; 97530-GP; A9270-GY; C9113; G8978-CM-GP; G8979-CL-GP; G8987-CL-GO; G8988-CK-GO; J0690; J1170; J2250; J2370; J2405; J2710; J3010; J3370